=== PATIENT | female | born 1970 | race Caucasian/White ===

== ENCOUNTER 2017-02-06 20:31 | Emergency (ER) | payer SELFPAY ==
[~2017-02-06] VITALS: Ht 157.5 cm; Wt 99.8 kg
[2017-02-06] MEDS ORDERED: ACETAMINOPHEN-1 EAC1 ORAL (21:26)
[2017-02-06] MEDS ORDERED: Ketorolac 30mg Inj IM ONE (21:30)
[2017-02-06 21:44] VITALS: BP 126/67
--- NOTE | 2017-02-08 09:25 | Emergency Room Report ---
History of Present Illness General Chief Complaint: Pain Source: Patient Present Illness HPI 38-year-old female presents to ED for evaluation. Patient states complaining of back pain and chest pain x1 day. Patient has history of sciatica. Denies any recent trauma or fall. Pain is an 8/10, dull, radiating down both legs. Denies any bowel or bladder incontinence. Denies any leg or motor weakness. Allergies: Coded Allergies: No Known Allergies (Unverified , 02/06/17) Patient History Past Medical History: DM Past Surgical History: none Pertinent Family History: none Social History: Denies: smoking, alcohol use, drug use Now: No Immunizations: UTD Reviewed Nursing Documentation: PMH: Agreed, PSxH: Agreed Nursing Documentation-PMH Hx Cardiac Problems: Yes - HIGH CHOLESTEROL Hx Diabetes: Yes Review of Systems All Other Systems: negative except mentioned in HPI Physical Exam Vital Signs Date Time Temp Pulse Resp B/P (MAP) Pulse Ox O2 Delivery O2 Flow Rate FiO2 02/06/17 21:24 97.9 80 16 126/67 100 Room Air Sp02 EP Interpretation: reviewed, normal General Appearance: no apparent distress, alert, GCS 15, non-toxic Head: normocephalic, atraumatic Eyes: bilateral eye normal inspection, bilateral eye PERRL ENT: hearing grossly normal, normal pharynx, no angioedema, normal voice Neck: full range of motion, supple/symm/no masses Respiratory: chest non-tender, lungs clear, normal breath sounds, speaking full sentences Cardiovascular #1: regular rate, rhythm, no edema Cardiovascular #2: 2+ carotid (R), 2+ carotid (L), 2+ radial (R), 2+ radial (L) , 2+ dorsalis pedis (R), 2+ dorsalis pedis (L) Gastrointestinal: normal bowel sounds, non tender, soft, non-distended, no guarding, no rebound Rectal: deferred Genitourinary: normal inspection, no CVA tenderness, no vertebral tenderness Musculoskeletal: back normal, gait/station normal, normal range of motion, tender - paraspinal lumbar tenderness Neurologic: alert, oriented x3, responsive, motor strength/tone normal, sensory intact, speech normal Psychiatric: judgement/insight normal, memory normal, mood/affect normal, no suicidal/homicidal ideation Reflexes: 3+ bicep (R), 3+ bicep (L), 3+ tricep (R), 3+ tricep (L), 3+ knee (R) , 3+ knee (L) Skin: normal color, no rash, warm/dry, well hydrated Lymphatic: no adenopathy Medical Decision Making Diagnostic Impression: Primary Impression: Sciatica Qualified Codes: M54.31 - Sciatica, right side; M54.32 - Sciatica, left side ER Course Hospital Course 46-year-old female presents ED complaining of lower back pain. No evidence of trauma Differential diagnoses include: pyelonephritis, kidney stone, muscle strain, Lspine fracture Clinical course Patient placed on stretcher. After initial history and physical I ordered toradol for pain. Upon reassessment patient states pain has improved. Upon review of EMR, patient does not have any visits to ED requesting pain medications. Diagnosis - sciatica Stable and discharged to home with prescription for Tylenol #3. Followup with PMD. Return to ED if symptoms recur or worsen Last Vital Signs Date Time Temp Pulse Resp B/P (MAP) Pulse Ox O2 Delivery O2 Flow Rate FiO2 02/06/17 21:44 97.9 80 16 126/67 100 Room Air Status: improved Disposition: HOME, SELF-CARE Condition: Stable Scripts Acetaminophen With Codeine (T#3) (TYLENOL #3 TAB*) Y Tab 1 TAB ORAL Q8H Y for For Pain, #20 TAB Prov: TREV PENA M.D. 02/06/17 Referrals: NON PHYSICIAN (PCP) Patient Instructions: Sciatica With [facility] TREV PENA M.D. Feb 08, 2017 09:25
== END 2017-02-06 21:50 | disposition home or self-care (01) ==
LOC: EMR 21:46
DX: M54.41 Lumbago with sciatica, right side (principal); E11.9 Type 2 diabetes mellitus without complications; E78.00 Pure hypercholesterolemia, unspecified
CPT/HCPCS: 96372; 99284; J1885; 96374